=== PATIENT | female | born 1940 | race Caucasian/White ===

== ENCOUNTER 2020-02-06 06:33 | Day surgery (SDC) | payer MEDICARE, MEDICAID, SELFPAY ==
[2020-02-05 09:18] VITALS: BMI 27.8
[2020-02-06 07:00] VITALS: BP 145/69; PULSE 82; RESP 18; TEMP 36.5; O2SAT 97
[2020-02-06] MEDS: sodium chloride 0.9% 1,000 ML 30 ML (07:05)
--- NOTE | 2020-02-06 07:46 | ANES.PREANE2 ---
Pre-Anesthetic Assessment Pre-Anesthetic Assessment: Height/Weight: Height 1.6 m Weight 71.214 kg Temp Pulse Resp BP Pulse Ox 97.7 F 82 18 145/69 97 02/06/20 07:00 02/06/20 07:00 02/06/20 07:00 02/06/20 07:00 02/06/20 07:00 Preop Diagnosis: 1 Proposed Procedure: Operation Date: 02/06/20 09:00 Proposed Procedures p Colonoscopy 05214 K92.1(Not Applicable) - River Lara MD Familial anesthetic complications: denies Was Beta Mary taken within 24 hours: N/A Last intake: Intake Last Liquid Date 02/12/20 Last Liquid Time 19:00 Last Solid Date 02/04/20 Last Solid Time 20:00 Last Intake: 00:00 Social: Social History: No alcohol and No tobacco Exam: Pre-Anes Outpt Exam: alert, oriented x 3 and clear to auscultation bilaterally Airway: Submandibular: WNL Cervical ROM: WNL MP: 1 Dentition: Full (dentures out ) Pulmonary: Pulmonary: Sleep apnea (suppose to wear CPAP) CV/HEM: CV/HEM: HTN : : None reported Hepatic: Hepatic: None reported GI: GI: GERD (controlled with diet) and Hiatus hernia (surgical repair 2007) Metabolic: Metabolic: None reported Musc/skel: Musc/skel: OA/DJD Neuropsych: Neuropsych: None reported Anesthetic Plan: ASA status: 2 Anesthesia: Anesthesia Evaluation and MAC PFSH Anesthesia PFSH: Social History (Updated 01/21/20 @ 13:31 by BREONNA Diallo) Smoking and tobacco status: never smoked Alcohol intake: never History of recent travel: No Current gender identity: Female Data Anesthesia Cardiac Studies: No Data to Display
--- NOTE | 2020-02-06 08:55 | W.PM.OPSUD ---
Surgery/Procedure H&P Update DATE OF PROCEDURE: February 06, 2020 DATE H&P PERFORMED: 01/21/20 PREOP DIAGNOSIS: 1 PLANNED PROCEDURE: Operation Date: 02/06/20 09:00 Proposed Procedures p Colonoscopy 91728 K92.1(Not Applicable) - River Lara MD
[2020-02-06 09:56] VITALS: BP 140/67; PULSE 76; RESP 16; TEMP 36.4; O2SAT 95
[2020-02-06 10:04] VITALS: BP 143/76; PULSE 73; RESP 16; O2SAT 99
--- NOTE | 2020-02-06 10:26 | CT_ITS ---
WS: [id number] CT ABDOMEN PELVIS TECHNIQUE: Contrast-enhanced CT of the abdomen and pelvis with coronal and sagittal reformatted image s. CLINICAL INFORMATION: COLON MASS AT 25 CM COMPARISON: None. DLP: [id number] scans at [facility] use at least one of these dose optimization techniques: automat ed exposure control; mA and/or kV adjustment per patient size (includes targeted exams where dose is matched to clinical indication); or iterative reconstruction. FINDINGS: Liver is normal. Normal portal vein and splenic vein. Normal spleen. Normal pancreas. Normal visualiz ed portal vein and splenic vein. Adrenal glands are normal. No hydronephrosis. Small esophageal hiata l hernia. Lung bases are well aerated. Normal caliber abdominal aorta. Aortic calcification. No periaortic lymphadenopathy. No pelvic lymphadenopathy. Small seroma along th e right inguinal canal measuring 3.0 CM. No inguinal lymphadenopathy. Sigmoid diverticulosis. No evidence of acute diverticulitis. Recently biopsied mass in the sigmoid co vanessa not definitely visualized. Normal ileocecal valve. Mild wall thickening involving the right colon may be due to recent colonoscopy or incomplete distention. CT/CT abdomen pelvis w con* [id number] IMPRESSION: 1. No evidence of metastatic disease in the abdomen or pelvis. 2. Normal liver and spleen. 3. No abdominal lymphadenopathy. 4. Sigmoid diverticulosis. No evidence of acute diverticulitis. Trace free flu id in the pelvis. 5. Recently biopsied sigmoid Lesion not definitely visualized. 6. Mild wall thickening involving the right colon may be due to recent colono scopy or incomplete distention. 7. Fluid attenuation collection along the right inguinal canal likely seroma. 8. Prior hysterectomy and cholecystectomy.
[2020-02-06] MEDS: iohexol 300 mg/mL 50 mL Btl IV (10:43)
[2020-02-06 10:46] LABS: Basophils # 0.1 10^3/uL (0.0-0.1); Basophils % 0.8 %; Eosinophils # 0.1 10^3/uL (0.0-0.8); Eosinophils % 0.6 %; Hematocrit 40.3 % (37.0-47.0); Hemoglobin 12.8 g/dL (11.5-15.3); Lymphocytes # 1.5 10^3/uL (0.8-4.8); Lymphocytes % 19.7 %; Mean Corpuscular HGB Conc 31.8 g/dL (30.0-36.0); Mean Corpuscular Hemoglobin 31.3 pg (28.0-34.0); Mean Corpuscular Volume 98.5 fL (81-99); Mean Platelet Volume 9.6 fL (7.4-10.4); Monocytes # 0.6 10^3/uL (0.2-0.9); Monocytes % 7.1 %; Neutrophils # 5.5 10^3/uL (1.8-7.7); Neutrophils % 71.5 %; Nucleated Red Blood Cells % 0 %; Platelet Count 286 10^3/cmm (130-400); Red Blood Count 4.09 10^6/uL (4.1-5.3); Red Cell Distribution Width 12.4 % (12.1-15.1); White Blood Count 7.7 10^3/uL (4.0-10.0)
[2020-02-06 10:59] LABS: Anion Gap 14.9 (5-19); Blood Urea Nitrogen 15 mg/dL (8-23); Carbon Dioxide 22 mmol/L (22-29); Chloride 106 mmol/L (98-107); Glucose 97 mg/dL (65-115); Osmolality Calculated 284 mOsm/kg (285-295); Potassium 3.9 mmol/L (3.5-5.1); Sodium 139 mmol/L (136-145)
[2020-02-06 11:09] LABS: Carcinoembryonic Antigen 6.6 ng/mL (0.0-4.7)
--- NOTE | 2020-02-06 11:20 | ANE.PACU2 ---
 Inpatient post-anesthesia follow up: Airway intact: Yes Vital signs: Temperature 97.5 F Pulse Rate 73 Respiratory Rate 16 Blood Pressure 143/76 Pulse Oximetry 99 Oxygen Delivery Me thod Room Air Oxygen Flow Rate 2 Fraction of Inspir ed Oxygen Hydration adequate: Yes Nausea and vomiting: No Pain level: 1 Mental status: Baseline
[2020-02-06] MEDS: iohexol 300 mg/mL 100 mL Btl IV (12:22)
[2020-03-03 11:35] LABS: Miscellaneous Test See Scanned Lab Rpt
== END 2020-02-06 11:00 | disposition home or self-care (01) ==
PROVIDERS: Family Provider Nurse Practitioner Family; PCP Nurse Practitioner Family; Visit Provider Internal Medicine
PROC: 0DJD8ZZ Inspection of Lower Intestinal Tract, Via Natural or Artificial Opening Endoscopic (ICD-10-PCS; CPT 45378; principal; 2020-02-06 09:00)
DX: C18.9 Malignant neoplasm of colon, unspecified (principal); K92.1 Melena; Z82.49 Family history of ischemic heart disease and other diseases of the circulatory system; K57.30 Diverticulosis of large intestine without perforation or abscess without bleeding; I10 Essential (primary) hypertension; K21.9 Gastro-esophageal reflux disease without esophagitis; M19.90 Unspecified osteoarthritis, unspecified site
CPT/HCPCS: 12345; 45380; 74177; 80048; 82378; 85025; 88305; 88341; 88342; J2001; J2704; J7030

== ENCOUNTER 2020-02-06 11:20 | Outpatient (CLI) | payer MEDICARE, MEDICAID, SELFPAY | END 2020-02-06 11:21 | disposition home or self-care (01) | PROVIDERS: Family Provider Nurse Practitioner Family; PCP Nurse Practitioner Family; Visit Provider Internal Medicine | DX: Z01.89 Encounter for other specified special examinations (principal) ==

== ENCOUNTER 2020-02-18 06:30 | Inpatient (IN) | payer MEDICARE, MEDICAID, SELFPAY ==
[2020-02-18] VITALS (18 sets, daily range): BP systolic 137–174; BP diastolic 55–92; PULSE 73–103; RESP 15–20; TEMP 36.2–37.4; O2SAT 90–99; BMI 28.0
--- NOTE | 2020-02-18 07:01 | W.PM.OPSUD ---
Surgery/Procedure H&P Update DATE OF PROCEDURE: February 18, 2020 DATE H&P PERFORMED: 02/13/20 H&P UPDATE INFORMATION: I have reviewed H&P completed within last 30 days, I have examined patient prior to procedure and No changes to prior documentation PREOP DIAGNOSIS: Sigmoid colon cancer PLANNED PROCEDURE: Operation Date: 02/18/20 08:00 Proposed Procedures p Laparoscopic poss open Sigmoidectomy 84777 C18.7(Not Applicable) - Goyo Stewart MD
[2020-02-18] MEDS: sodium chloride 0.9% 1,000 ML 30 ML IV (07:30)
--- NOTE | 2020-02-18 07:34 | ANES.PREANE2 ---
Pre-Anesthetic Assessment Pre-Anesthetic Assessment: Height/Weight: Height 1.6 m Weight 71.668 kg Preop Diagnosis: Sigmoid colon cancer Proposed Procedure: Operation Date: 02/18/20 08:00 Proposed Procedures p Laparoscopic poss open Sigmoidectomy 06914 C18.7(Not Applicable) - Goyo Stewart MD Last intake: Intake Last Liquid Date 02/17/20 Last Liquid Time 19:00 Last Solid Date 02/17/20 Last Solid Time 06:45 Exam: Pre-Anes Outpt Exam: alert, oriented x 3, clear to auscultation bilaterally and regular rate & rhythm Airway: Submandibular: WNL Cervical ROM: WNL MP: 1 Dentition: False CV/HEM: CV/HEM: HTN Comments: rx'd 10y 2 blocks/2FOS without angina/MELENDEZ : : UTI Comments: last 3y ago GI: GI: Hiatus hernia Comments: sigmoid CA hiatal hernia repair 12y with good result Musc/skel: Musc/skel: Lower Back Pain Comments: left radiculopathy Anesthetic Plan: ASA status: 3 Anesthesia: General and MAC Meds/Allergies Current Medications: Current Medications Generic Name Dose Route Start Last Admin Trade Name Freq PRN Reason Stop Dose Admin Sodium Chloride 1,000 mls @ 30 ml s/hr 02/18/20 07:30 02/18/20 07:30 Sodium Chloride 0.9% IV 02/19/20 07:29 30 mls/hr .Q24H JEMMA Administration PFSH Anesthesia PFSH: Medical History (Updated 02/13/20 @ 16:47 by Goyo Stewart MD) Adenocarcinoma of sigmoid colon Essential (primary) hypertension Osteoarthritis (~01/2020) Primary insomnia Surgical History (Updated 02/13/20 @ 11:05 by Goyo Stewart MD) History of cholecystectomy History of colonoscopy with polypectomy History of hysterectomy History of repair of hiatal hernia Social History Smoking and tobacco status: never smoked Alcohol intake: never History of recent travel: No Current gender identity: Female Female Reproductive History: Date of last menstrual period: 02/12/01 Data Anesthesia Cardiac Studies: No Data to Display
[2020-02-18] MEDS: metroNIDAZOLE IV 500 MG/100 ML PREMIX 100 MG IV ×3 (08:03→22:13)
--- NOTE | 2020-02-18 11:48 | PM.OP ---
Operative Report Date of procedure: February 18, 2020 Pre-op Diagnosis: Sigmoid colon cancer Post-op Diagnosis: No evidence of peritoneal carcinomatosis Sigmoid colon cancer Procedure Done: Laparoscopic sigmoid colectomy with 28 mm EEA anastomosis Flexible sigmoidoscopy Surgeon: Goyo Stewart Director Of Intercollegiate Athletics: Dwight Rankin Anesthesia: General Estimated blood loss (mL): 25 IV fluids (mL): 1,300 Urine output (mL): 125 Condition: stable Disposition: floor Procedure: The patient was taken to the operating room, intubated under general anesthesia after IV antibiotic had been administered. The patient was placed in modified lithotomy position with shoulder support and the Stokes catheter was placed. The rectum was irrigated with diluted Betadine using red rubber catheter. The abdomen and the perineum was prepped and draped in a sterile manner. Using a 15 blade, a midline infraumbilical incision was made and using open Colon technique the peritoneal cavity was entered, 12 mm port was placed and 15 mm of pneumoperitoneum was created. A 10 mm 30? scope was then introduced. 5 mm ports were placed in the left lower quadrant and in the right upper quadrant under direct visualization in the midclavicular line and and a 12 mm port was placed in the right lower quadrant. Examination of the colon revealed a a mass within the sigmoid colon which had been previously inked, no signs of liver lesions or peritoneal carcinomatosis. The patient was placed in steep Trendelenburg position and rotated to the right in order to place a small bowel loops in the right upper quadrant. The transverse colon was retracted superiorly. The inferior mesenteric artery was identified near its takeoff, the peritoneum opened and dissection was carried posterior to the artery until the ureter was identified. A medial to lateral dissection of the sigmoid mesocolon was performed down to the rectosigmoid junction. There were adhesions of the sigmoid colon to the abdominal wall which were taken down. The line of Toldt was opened along the descending colon up to the splenic flexure and the avascular plane was entered to mobilize the descending colon medially. The sigmoid mesocolon was divided using Turton 45 mm MC at the proximal rectum to ensure there was at least 5 cm distal margin. 2 loads of 45 mm blue load Endo MC stapler was introduced through the right lower quadrant port to divide the rectum distally. At this point it appeared that the descending colon reached up to the rectum and the midline umbilical incision was extended up the pneumoperitoneum was released and a wound protector was placed and the divided sigmoid colon was exteriorized. A noncrushing bowel clamps were placed in the descending colon and an Autosuture pursestring was placed and the colon was divided and the specimen removed from the operating field. Serial anal dilators were used and it was decided to proceed with the 28 mm EEA stapler. The anvil of the EEA stapler was introduced into the descending colon and tied down. The colon was introduced into the peritoneal cavity and the pneumoperitoneum was recreated. At this point joined me to help with the case. The anus was digitally dilated and the EEA stapler was introduced through the anal canal and the trocar passed anterior to the previously created staple line and attached to the anvil after ensuring that there was no twisting of the mesentery. The EEA stapler was fired to create the stapled 28 mm end-to-end anastomosis and 2 intact doughnuts were retrieved which were sent as proximal margin and distal margin. A colonoscope was introduced and passed beyond the anastomosis after submerging the anastomosis under saline in the pelvis. The air leak test was negative. There was no significant bleeding noted from the staple line. 20 cc of saline mixed with 20 0.5% Marcaine mixed with 20 cc of Exparel was injected in the midclavicular line bilaterally for TAP block. The colonoscope was withdrawn. All 4 ports were removed under direct visualization and the fascia the midline was closed using #1 loop PDS. The fascia of the right lower quadrant port was closed using [id number] 0 Vicryl suture. The subcutaneous tissue was approximated using 3-0 Vicryl suture and skin was closed using running subcuticular 4-0 Monocryl suture and Dermabond. The patient was subsequently extubated and transferred to recovery room with a Stokes catheter in place.
[2020-02-18] MEDS: fentaNYL 50 mcg/mL INJ 2mL IVP ×2 (12:04→12:09)
--- NOTE | 2020-02-18 12:44 | PC.NURSE ---
3 incisions noted to abdomen. covered with dermabond and no drainage noted.
[2020-02-18] MEDS: famotidine 20 mg/2 mL INJ IVP (13:16)
[2020-02-18] MEDS: D5-NS 0.45% + KCL 20 mEq 20 MEQ/1,000 ML BAG 100 MEQ IV (13:19)
[2020-02-18] MEDS: docusate sodium 100 mg Capsule PO (17:18)
[2020-02-18] MEDS: HYDROcodone-acetaminophen 5-325 mg Tablet 1 TAB PO (21:31)
[2020-02-19] VITALS (8 sets, daily range): BP systolic 102–157; BP diastolic 53–76; PULSE 73–79; RESP 16–20; TEMP 36.6–37.2; O2SAT 90–93
[2020-02-19] MEDS: D5-NS 0.45% + KCL 20 mEq 20 MEQ/1,000 ML BAG 100 MEQ IV ×2 (01:33→13:00)
[2020-02-19] MEDS: famotidine 20 mg/2 mL INJ IVP ×3 (01:34→23:34)
[2020-02-19 05:26] LABS: Basophils % 0.1 %; Hematocrit 36.3 % (37.0-47.0); Hemoglobin 11.3 g/dL (11.5-15.3); Lymphocytes # 1.2 10^3/uL (0.8-4.8); Lymphocytes % 11.6 %; Mean Corpuscular HGB Conc 31.1 g/dL (30.0-36.0); Mean Corpuscular Hemoglobin 30.8 pg (28.0-34.0); Mean Corpuscular Volume 98.9 fL (81-99); Mean Platelet Volume 9.9 fL (7.4-10.4); Monocytes # 1.3 10^3/uL (0.2-0.9); Monocytes % 12.5 %; Neutrophils # 7.9 10^3/uL (1.8-7.7); Neutrophils % 75.3 %; Nucleated Red Blood Cells % 0 %; Platelet Count 277 10^3/cmm (130-400); Red Blood Count 3.67 10^6/uL (4.1-5.3); Red Cell Distribution Width 12.5 % (12.1-15.1); White Blood Count 10.5 10^3/uL (4.0-10.0)
[2020-02-19] MEDS: enoxaparin 40 mg/0.4 mL Syringe SUBCUT (05:36)
[2020-02-19 05:46] LABS: Anion Gap 15.4 (5-19); Blood Urea Nitrogen 10 mg/dL (8-23); Calcium 8.3 mg/dL (8.5-10.5); Carbon Dioxide 20 mmol/L (22-29); Chloride 108 mmol/L (98-107); Creatinine Clr Calc Pharmacy 55.8809; Glucose 140 mg/dL (65-115); Osmolality Calculated 286 mOsm/kg (285-295); Potassium 4.4 mmol/L (3.5-5.1); Sodium 139 mmol/L (136-145)
[2020-02-19] MEDS: cetirizine 10 mg Tablet PO (09:48)
[2020-02-19] MEDS: docusate sodium 100 mg Capsule PO ×2 (09:48→17:10)
[2020-02-19] MEDS: amlodipine 10 mg Tablet PO (09:48)
[2020-02-19] MEDS: gabapentin 300 mg Capsule PO ×3 (09:49→20:59)
[2020-02-19] MEDS: HYDROcodone-acetaminophen 5-325 mg Tablet 1 TAB PO (10:44)
--- NOTE | 2020-02-19 10:51 | PC.NURSE ---
bar removed bar. pt tolerated it well. 9ml ns removed from balloon.
--- NOTE | 2020-02-19 11:12 | PC.CHAP ---
Pastoral Care Encounter/Spiritual Assessment Type of Contact [] Declined clean up supervisor visit [] Patient/Family/Request visit [] Outpatient visit [] Follow-up visit [] Physician referral [] Code/Alert [x] Routine visit [] Staff referral [] Actively dying [] Patient sleeping [] Family support [] [] Out of room [] Palliative care [] [] Receiving care in room [] Pre-surgical visit [] Trauma [] Long length of stay [] ICU visit [] Other: Relational/Emotional Strength [x] Patient feels connected with others/family/visitors/staff [] Distress [] Loneliness/isolation [] Abandonment Spirituality of Patient [x] Person of Pretty [x] Attends Orthodoxy of their Pretty [x] Believes in Prayer [x] Reads Bible or Temple materials [] There are Spiritual issues to be addressed Felt Tipping Machine Tender Interventions [x] Prayer [xx] Active listening [x] Non-anxious presence [x] Spiritual/emotional support [] Crisis/trauma care [x] Spiritual counseling [] Bereavement support [] Provided bereavement packet [] Provided Bible/devotional materials [] Provided toy/stuffed animal, coloring book to patient or family member [] Provided Communion [] Anointing/[place] [] Salvation [] Completed spiritual assessment [] Other: Impact on Illness or Injury [] Angry [] Fearful [] Anxious [] Often cries [] Exhaustion [] Unable to work [] Unable to attend baptism [] Unable to walk/stand [] Unable to read [] Unable to drive [] Unable to eat/drink [] Unable to sleep [] Unable to be with family [] Patient intubated [x] Other: n/a Summary Patient is strong in pretty, proclaimed that her son is a ground host/hostess in [place]. Time spent with patient 10 minutes
--- NOTE | 2020-02-19 13:22 | PC.NURSE ---
amb Pt walked three times around north/south and two times this morning. Still no bm or gas.
--- NOTE | 2020-02-19 13:44 | P.PN_ITS ---
Subjective Subjective: Interval history: patient doing well, no nausea, vomiting, flatus or BM Vitals/I&O/Wt Last Vital Signs Temp 97.9 F 02/19/20 11:51 Pulse 75 02/19/20 11:51 Resp 20 H 02/19/20 11:51 BP 125/65 02/19/20 11:51 Pulse Ox 92 02/19/20 11:51 02/18/20 02/19/20 02/19/20 22:59 06:59 14:59 Intake Total 915 / 1690 225 / 1690 1720 / 1720 Output Total 500 / 1925 1150 / 1925 1150 / 1150 Balance 415 / -235 -925 / -235 570 / 570 Weight last 48 hrs Weight 158 lb Physical Exam Narrative: EXAM NARRATIVE: Abdomen: soft slighty distended and tender, incision clean dry and intact Urinary Catheter Management^: F: Cath Placed During This Visit: yes Reason for Continuing Indwelling Catheter: Required Immobilization for Trauma or Surgery or Anesthesia Urinary Catheter Date of Insertion: 02/18/20 Urinary Catheter Time of Insertion: 08:30 Data : 02/20/20 05:23 02/20/20 05:23 A&P Assessment and plan (1) S/P partial colectomy: Status post laparoscopic sigmoid colectomy doing well IV fluids at 30 cc/h Ambulate ad gregory. DC Stokes catheter Pepcid for GI prophylaxis Lovenox for DVT prophylaxis Colace for bowel regimen Resume all home medications Status: Acute Code(s): Z90.49 - Acquired absence of other specified parts of digestive tract Attestations Medical Necessity Statement*: Status post sigmoid colectomy with postop ileus requiring continued inpatient stay Coding Level of Care Code Acute [place] Program Coordinator for Chg Fwd Diagnoses S/P partial colectomy Z90.49
--- NOTE | 2020-02-19 15:00 | PC.NURSE ---
amb pt ambuated 4 times around north/south
--- NOTE | 2020-02-19 21:04 | PC.NURSE ---
flatus pt was able to pass gas while nurse was in room administering medications.
[2020-02-20] VITALS: BP 122/70; PULSE 69; RESP 17; TEMP 37.1; O2SAT 90
[2020-02-20 04:00] VITALS: BP 114/69; PULSE 66; RESP 17; TEMP 36.7; O2SAT 90
[2020-02-20] MEDS: enoxaparin 40 mg/0.4 mL Syringe SUBCUT (05:19)
[2020-02-20 06:21] LABS: Basophils # 0.1 10^3/uL (0.0-0.1); Basophils % 0.7 %; Eosinophils # 0.1 10^3/uL (0.0-0.8); Hematocrit 34.2 % (37.0-47.0); Hemoglobin 10.7 g/dL (11.5-15.3); Lymphocytes # 2.1 10^3/uL (0.8-4.8); Lymphocytes % 29.1 %; Mean Corpuscular HGB Conc 31.3 g/dL (30.0-36.0); Mean Corpuscular Hemoglobin 31.1 pg (28.0-34.0); Mean Corpuscular Volume 99.4 fL (81-99); Mean Platelet Volume 9.8 fL (7.4-10.4); Monocytes # 0.7 10^3/uL (0.2-0.9); Monocytes % 10.3 %; Neutrophils # 4.2 10^3/uL (1.8-7.7); Neutrophils % 58.6 %; Nucleated Red Blood Cells % 0 %; Platelet Count 272 10^3/cmm (130-400); Red Blood Count 3.44 10^6/uL (4.1-5.3); Red Cell Distribution Width 12.8 % (12.1-15.1); White Blood Count 7.2 10^3/uL (4.0-10.0)
[2020-02-20 06:32] LABS: Anion Gap 11.2 (5-19); Blood Urea Nitrogen 9 mg/dL (8-23); Calcium 8.9 mg/dL (8.5-10.5); Carbon Dioxide 25 mmol/L (22-29); Chloride 109 mmol/L (98-107); Creatinine Clr Calc Pharmacy 55.8809; Glucose 94 mg/dL (65-115); Osmolality Calculated 288 mOsm/kg (285-295); Potassium 4.2 mmol/L (3.5-5.1); Sodium 141 mmol/L (136-145)
[2020-02-20 08:00] VITALS: BP 145/74; PULSE 75; RESP 16; TEMP 36.8; O2SAT 95
[2020-02-20] MEDS: gabapentin 300 mg Capsule PO ×3 (08:47→20:36)
[2020-02-20] MEDS: amlodipine 10 mg Tablet PO (08:47)
[2020-02-20] MEDS: cetirizine 10 mg Tablet PO (08:47)
[2020-02-20] MEDS: docusate sodium 100 mg Capsule PO ×2 (08:47→17:44)
--- NOTE | 2020-02-20 09:44 | PC.CHAP ---
Pastoral Care Encounter/Spiritual Assessment Type of Contact [] Declined business development manager visit [] Patient/Family/Request visit [] Outpatient visit [] Follow-up visit [] Physician referral [] Code/Alert [xx] Routine visit [] Staff referral [] Actively dying [] Patient sleeping [] Family support [] [] Out of room [] Palliative care [] [] Receiving care in room [] Pre-surgical visit [] Trauma [] Long length of stay [] ICU visit [] Other: Relational/Emotional Strength [x] Patient feels connected with others/family/visitors/staff [] Distress [] Loneliness/isolation [] Abandonment Spirituality of Patient [x] Person of Pretty [x] Attends Yarsanism of their Pretty [] Believes in Prayer [] Reads Bible or Zoroastrian materials [] There are Spiritual issues to be addressed Entry Level Accountant Interventions [x] Prayer [] Active listening [] Non-anxious presence [] Spiritual/emotional support [] Crisis/trauma care [] Spiritual counseling [] Bereavement support [] Provided bereavement packet [] Provided Bible/devotional materials [] Provided toy/stuffed animal, coloring book to patient or family member [] Provided Communion [] Anointing/[place] [] Salvation [x Completed spiritual assessment [] Other: Impact on Illness or Injury [] Angry [] Fearful [] Anxious [] Often cries [] Exhaustion [] Unable to work [] Unable to attend latter-day [] Unable to walk/stand [] Unable to read [] Unable to drive [] Unable to eat/drink [] Unable to sleep [] Unable to be with family [] Patient intubated [] Other: Summary patient feeling much better Time spent with patient 10 min
[2020-02-20 11:30] VITALS: BP 106/65; PULSE 73; RESP 16; TEMP 36.7; O2SAT 96
[2020-02-20] MEDS: famotidine 20 mg/2 mL INJ IVP (12:11)
[2020-02-20] MEDS: acetaminophen 325 mg Tablet 650 MG PO (12:23)
[2020-02-20 15:55] VITALS: BP 121/68; PULSE 68; RESP 16; TEMP 37; O2SAT 94
--- NOTE | 2020-02-20 17:55 | P.PN_ITS ---
Subjective Subjective: Interval history: Patient is passing flatus, no nausea or vomiting, no BM yet Vitals/I&O/Wt Last Vital Signs Temp 98.6 F 02/20/20 15:55 Pulse 68 02/20/20 15:55 Resp 16 02/20/20 15:55 BP 121/68 02/20/20 15:55 Pulse Ox 94 02/20/20 15:55 02/20/20 02/20/20 02/20/20 06:59 14:59 22:59 Intake Total 360 / 360 Output Total 1000 / 3810 1400 / 2400 1000 / 2400 Balance -1000 / -1850 -1040 / -2040 -1000 / -2040 Physical Exam Narrative: EXAM NARRATIVE: Abdomen: Soft, nontender, nondistended incisions healing well Urinary Catheter Management^: F: Cath Placed During This Visit: yes Reason for Continuing Indwelling Catheter: Required Immobilization for Trauma or Surgery or Anesthesia Urinary Catheter Date of Insertion: 02/18/20 Urinary Catheter Time of Insertion: 08:30 Data : 02/20/20 05:23 02/20/20 05:23 A&P Assessment and plan (1) S/P partial colectomy: Status post laparoscopic sigmoid colectomy doing well DC IV fluids Ambulate ad gregory. Advance to full liquid diet DC Stokes catheter Pepcid for GI prophylaxis Lovenox for DVT prophylaxis Colace for bowel regimen Continue all home medications Status: Acute Code(s): Z90.49 - Acquired absence of other specified parts of digestive tract Attestations Medical Necessity Statement*: Patient will need continued inpatient stay to ensure resolution of ileus Coding Level of Care Code Acute Medical Staff Coordinator for Chg Fwd Diagnoses S/P partial colectomy Z90.49
[2020-02-20 20:00] VITALS: BP 146/82; PULSE 76; RESP 18; TEMP 36.6; O2SAT 95
[2020-02-21] VITALS: BP 124/50; PULSE 66; RESP 17; TEMP 36.7; O2SAT 93
[2020-02-21] MEDS: acetaminophen 325 mg Tablet 650 MG PO (03:43)
[2020-02-21 03:58] VITALS: BP 122/56; PULSE 64; RESP 17; TEMP 36.8; O2SAT 92
[2020-02-21] MEDS: famotidine 20 mg/2 mL INJ IVP (05:08)
[2020-02-21] MEDS: enoxaparin 40 mg/0.4 mL Syringe SUBCUT (05:08)
[2020-02-21 07:43] VITALS: BP 124/75; PULSE 69; RESP 16; TEMP 36.9; O2SAT 95
[2020-02-21] MEDS: gabapentin 300 mg Capsule PO (08:19)
[2020-02-21] MEDS: docusate sodium 100 mg Capsule PO (08:19)
[2020-02-21] MEDS: cetirizine 10 mg Tablet PO (08:20)
[2020-02-21] MEDS: amlodipine 10 mg Tablet PO (08:20)
--- NOTE | 2020-02-21 10:13 | PM.PN ---
Subjective Subjective: Interval history: Patient had multiple bowel movements, no nausea or vomiting, tolerating diet Medications: Reviewed: Yes Vitals/I&O/Wt Last Vital Signs Temp 98.5 F 02/21/20 07:43 Pulse 69 02/21/20 07:43 Resp 16 02/21/20 07:43 BP 124/75 02/21/20 07:43 Pulse Ox 95 02/21/20 07:43 02/20/20 02/21/20 02/21/20 22:59 06:59 14:59 Intake Total 240 / 600 240 / 240 Output Total 1000 / 2900 500 / 2900 450 / 450 Balance -760 / -2300 -500 / -2300 -210 / -210 Physical Exam Narrative: EXAM NARRATIVE: Abdomen: Soft, nontender, nondistended incisions healing well Urinary Catheter Management^: F: Cath Placed During This Visit: yes Reason for Continuing Indwelling Catheter: Required Immobilization for Trauma or Surgery or Anesthesia Urinary Catheter Date of Insertion: 02/18/20 Urinary Catheter Time of Insertion: 08:30 Data : 02/20/20 05:23 02/20/20 05:23 A&P Assessment and plan (1) S/P partial colectomy: Doing well DC home today Status: Acute Code(s): Z90.49 - Acquired absence of other specified parts of digestive tract Attestations Medical Necessity Statement*: DC home today Coding Level of Care Code Acute Patient Registration Clerk for Chg Fwd Diagnoses S/P partial colectomy Z90.49
--- NOTE | 2020-02-21 10:17 | PM.DCS ---
Discharge Providers Date of Admission: 02/18/20 06:30 Date of Discharge: February 21, 2020 Attending Provider at Admission: Goyo Stewart MD Attending Provider at Discharge: Goyo Stewart MD Primary Care Provider: Buffy Womack Diagnoses at Discharge Discharge Diagnosis (1) S/P partial colectomy: Status: Acute Problem details: Laparoscopic sigmoid colectomy Reason for Visit Reason for Visit: Reason For Visit: lap poss open sigmoid colectomy Hospital Course Hospital Course: This is a 79-year-old female who was diagnosed with sigmoid colon cancer on colonoscopy performed for a 3-month history of hematochezia. Patient underwent laparoscopic sigmoid colectomy and by day 2 she had return of bowel function. At time of discharge she was tolerating a regular diet ambulating and her pain was controlled with Tylenol. Her vital signs are stable Physical Exam Narrative: EXAM NARRATIVE: Abdomen: Soft, nontender, nondistended incisions healing well Urinary Catheter Management^: F: Cath Placed During This Visit: yes Reason for Continuing Indwelling Catheter: Required Immobilization for Trauma or Surgery or Anesthesia Urinary Catheter Date of Insertion: 02/18/20 Urinary Catheter Time of Insertion: 08:30 Discharge Data Data Completed and Pending: Completed Studies During Hospitalization Category Date Time Status Pathology: Surgic al [PTH] Routine Pth 02/18/20 11:23 Completed Pending at discharge Category Date Time Status ES surgery / GI i mages Routine Exams 02/18/20 07:03 Ordered Vitals: Last Vital Signs Temp 98.5 F 02/21/20 07:43 Pulse 69 02/21/20 07:43 Resp 16 02/21/20 07:43 BP 124/75 02/21/20 07:43 Pulse Ox 95 02/21/20 07:43 Discharge Plan Discharge Patient Disposition: Home, Self-Care Condition: Stable Prescriptions: [place] 5-325 mg tablet 1 tab PO Q6H 7 Days Qty: 20 RF: 0 docusate sodium [Colace] 100 mg capsule 100 mg PO BID Qty: 30 RF: 0 Continued All Day Allergy (cetirizine) 10 mg capsule 10 mg PO DAILY RF: 0 irbesartan-hydrochlorothiazide 150-12.5 mg tablet 1 tab PO DAILY RF: 0 amlodipine 10 mg tablet 10 mg PO DAILY RF: 0 montelukast [Singulair] 10 mg tablet 10 mg PO DAILY RF: 0 zolpidem [Ambien] 10 mg tablet 5 mg PO DAILY RF: 0 gabapentin 300 mg Capsule 300 mg PO TID RF: 0 Discharge Orders: Discharge Order (Routine); Ordered 02/21/20 Ordered By: Goyo Stewart Referrals: Goyo Stewart MD [Physician] - 2 weeks (patient has smart phone, try telehealth) Discharge Diet: GI Soft Activity Restrictions/Additional Instructions: 1. Up and walking as tolerated. 2. Ok to shower 3. Remove Dermabond dressing in 7-10 days. 4. Do not lift more than 10 pounds. 5. Do not operate heavy machinery or drive while using pain medications. 6. Advised to return to ER or contact my office if there are any signs of infection like, increasing pain, fevers, chills, redness or drainage of pus. 7. avoid high residue foods like salads, have 5 small meals instead of 3 regular meals as bowel function returns to normal. Discharge Attestations Time Spent in Discharge Care*: less than 30 min Quality Metrics Clinical Quality Measures During this hospital stay, did patient experience: None Coding Level of Care Code Acute Laboratory Equipment Cleaner for Chg Fwd Diagnoses S/P partial colectomy Z90.49
--- NOTE | 2020-02-21 10:50 | PC.SOCIAL ---
IMM Page 2 of IMM given to patient with [facility] number provided. Initialed, dated, and timed and placed in chart.
[2020-02-21 11:47] VITALS: BP 120/72; PULSE 71; RESP 16; TEMP 36.9; O2SAT 94
[2020-02-21 13:09] VITALS: BP 120/72; PULSE 71; RESP 16; TEMP 36.9; O2SAT 94
== END 2020-02-21 12:00 | disposition home or self-care (01) | DRG 331 ==
LOC: OR 06:31 → MEDSURG 07:07
PROVIDERS: Admitting Provider Surgery; Family Provider Nurse Practitioner Family; PCP Nurse Practitioner Family; Visit Provider Surgery
PROC: 0DTN4ZZ Resection of Sigmoid Colon, Percutaneous Endoscopic Approach (ICD-10-PCS; CPT 44204; principal; 2020-02-18 08:00)
PROC: 0DJD8ZZ Inspection of Lower Intestinal Tract, Via Natural or Artificial Opening Endoscopic (ICD-10-PCS; CPT 45378; 2020-02-18 08:00)
DX: C18.7 Malignant neoplasm of sigmoid colon (principal); Z90.49 Acquired absence of other specified parts of digestive tract; Z79.82 Long term (current) use of aspirin; Z79.83 Long term (current) use of bisphosphonates; Z79.899 Other long term (current) drug therapy
CPT/HCPCS: 12345; 36415; 51702; 80048; 85025; 86850; 86900; 88309; 96372; 96375; 97116; 97161; 97530; C9290; J0690; J1100; J1650; J2001; J2405; J2704; J2710; J2765; J3010; J3490; J7030; S0030

== ENCOUNTER 2020-03-26 12:18 | Outpatient (CLI) | payer MEDICARE, MEDICAID, SELFPAY ==
--- NOTE | 2020-03-26 15:32 | ONC CON_ITS ---
Dr. Wallace New Patient Note Patient: Rose Javier Unit #: [id number]: [id number] Dicatated By: Petros Wallace M.D.Date of Visit: March 26, 2020 Onc MED New Patient/Consult Referring Physician: No 'Referrals from' exist for this patient. History of Present Illness: Mrs. Rose Javier, is a 79-year-old female, as per patient in December 2019, she noticed blood in her stool and on 02/06/2020 she underwent colonoscopy evaluation which showed at 25 cm from anal verge, there is a nonobstructing, medium-size, fungating, friable, infiltrating, malignant appearing ulcerated mass seen biopsy was taken which confirmed adenocarcinoma . CT scan of abdomen pelvis done on 02/13/2020, showed no evidence of metastatic disease in abdomen or pelvis. subsequently on 02/18/2020, she underwent laparoscopic sigmoid colon resection and final pathology report showed moderately differentiated invasive adenocarcinoma tumor site 3.1 cm, tumor invades through muscularis propria into pericolic colorectal tissue, no lymphovascular invasion seen no perineural invasion seen surgical margins clear, pT3, 0/ 11 lymph nodes examined showed metastatic disease pN0 , intact MMR/MSI , stage II Patient tolerated procedure well now healing well. Patient denies any history of jaundice, denies any history of weight loss. Denies any history of poor appetite. Denies any history of nausea vomiting diarrhea but occasional constipation.Patient denies any history of anemia or dyspnea on exertion or shortness of breath or palpitation. Past Medical History: Ms. Javier's medical history consists of hypertension, insomnia, and osteoarthritis. Past Surgical History: Ms. Lindsays surgical/procedural history consists of cholecystectomy, colonoscopy with polypectomy, hysterectomy, laparoscopic sigmoid colectomy, metal pin in left foot 2nd toe, and repair of hiatal hernia.^, bilateral lower extremity superficial venous stripping] Medications: amLODIPine Besylate 1 Tablet (of 10 mg) Oral daily, buPROPion HCl ER (XL) 1 Tablet (of 150 mg) Tablet SR 24 HR Oral daily, Gabapentin 1 Capsule (of 300 mg) Oral t.i.d., Irbesartan-hydroCHLOROthiazide 1 Tablet (of 150-12.5 mg) Oral daily, Montelukast Sodium 1 Tablet (of 10 mg) Oral daily, Zolpidem Tartrate 1 Tablet (of 5 mg) Oral at bedtime Allergies: No Known Allergies. Social History: Ms. Javier is . Ms. Javier has never smoked. She has no history of drinking. Family History: Ms. Javier's mother at age 89: alzheimers. Ms. Javier's father at age 58: throat cancer. Ms. Javier has 1 brother who is alive: heart attack, and stroke. She has 1 sister who is alive: breast cancer, and thyroid disease. Review Of Symptoms: Constitutional - Appetite is diminished and weight is stable. No fever, chills, hot flashes, or night sweats. Energy level is good, ENMT - No sinus congestion/drainage. No mouth sores. No sore throat or difficulty swallowing, Hematologic/Lymphatic - Positive for easy bruising, Respiratory - No shortness of breath. No cough. No pleuritic pain or hemoptysis, Cardiovascular - No angina pain. No palpitations, Gastrointestinal - No nausea or vomiting. No heartburn or acid reflux. No diarrhea or constipation. No blood in the stool or black stools, Genitourinary (F) - No dysuria or hematuria. No urinary frequency. No urgency or incontinence, Musculoskeletal - No joint or bone pain, Neurologic - No headache or dizziness. No numbness/paresthesias or other focal neurologic symptoms, Psychiatric - No anxiety or depression. No insomnia. Vital Signs: Performed on March 26, 2020 12:43: 0, 26.40, 1.75 sq.m, 64 in, 98 %, 75 /min, 18 /min, 117/64 mm(hg), 98.0 F (LOW), and 153.8 lbs (HIGH). Performance Status: 0 - Fully active, able to carry on all predisease activities without restrictions. (ECOG) Physical Examination: ENMT - no mouth sores, no thrush, no jaundice, Respiratory - Lungs are clear, Cardiovascular - Regular rate and rhythm of heart, Abdomen - soft, bowel sounds present, well-healed surgical scar, Extremities - 1+ edema bilaterally. Lab/Imaging: Most recent lab results are not available for this patient. 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 Patient is an elderly female, now with newly diagnosed stage II colon cancer with no high risk features like obstruction or lymphovascular invasion. As per N CCN guidelines, there is no role of adjuvant chemotherapy rather observation alone. So at this point , we will follow her every 3 months with CBC and CMP in first year then every 4-6 months thereafter up to 5 years. Patient will be scheduled for follow-up colonoscopy within the year from surgery. Her labs done from February 19: showed mild anemia hemoglobin 10.7 hematocrit 34.2 with a normal white blood count and platelets, her anemia could be due to chronic blood loss and considering her age underlying myelodysplasia cannot be ruled out. We will check her iron studies and B12 level today if it is low, we'll consider supplement otherwise observe Patient return to clinic in 3 months with CBC CMP. Signed By: Petros Wallace M.D. <<Signature on File>>
[2020-03-26 16:16] LABS: Ferritin 202 ng/mL (15-150); Iron 68 ug/dL (37-145); Percent Saturation 22.7 % (20-50); Total Iron Binding Capacity 299 mcg/dl; Unsaturated Iron Binding 231 ug/dL (112-347)
[2020-03-26 16:32] LABS: Vitamin B12 401 pg/mL (232-1245)
[2020-03-26 16:38] LABS: Folate Level 11.4 ng/mL (4.8-37.3)
== END 2020-03-26 12:19 | disposition home or self-care (01) ==
LOC: ONCMED 12:18
PROVIDERS: Family Provider Nurse Practitioner Family; PCP Nurse Practitioner Family; Visit Provider Internal Medicine Hematology & Oncology
DX: C18.7 Malignant neoplasm of sigmoid colon (principal); D46.9 Myelodysplastic syndrome, unspecified
CPT/HCPCS: 36415; 82607; 82728; 82746; 83540; 83550; 99203

== ENCOUNTER 2020-04-07 14:22 | Outpatient (CLI) | payer MEDICARE, MEDICAID, SELFPAY ==
--- NOTE | 2020-04-07 14:41 | CT_ITS ---
WS: [id number] CT HEAD TECHNIQUE: Noncontrast CT of the head obtained from the skullbase to the vertex. CLINICAL INFORMATION: VERTIGO COMPARISON: None. DLP: 992.[address] scans at [facility] use at least one of these dose optimization techniques: automat ed exposure control; mA and/or kV adjustment per patient size (includes targeted exams where dose is matched to clinical indication); or iterative reconstruction. FINDINGS: No evidence of intracranial hemorrhage or mass effect. Ventricular system and basal cisterns are yi nt. Mild small vessel changes with mild parenchymal volume loss. Tiny chronic lacunar infarct right l ateral basal ganglia. Intracranial vascular calcification. No extra-axial fluid collections. No evide nce of mass or mass effect. Normal magdaleno-white differentiation. Paranasal sinuses and mastoid air cells are well aerated. .Normal visualized soft tissues. CT/CT head wo con* [id number] IMPRESSION: 1. No evidence of intracranial hemorrhage or mass effect. 2. Mild small vessel changes with mild parenchymal volume loss. 3. Tiny chronic lacunar infarct right lateral basal ganglia. 4. No acute intracranial findings.
== END 2020-04-07 14:23 | disposition home or self-care (01) ==
LOC: RADWPI 14:27
PROVIDERS: Family Provider Nurse Practitioner Family; PCP Nurse Practitioner Family; Visit Provider Nurse Practitioner Family
DX: R42 Dizziness and giddiness (principal); I63.81 Other cerebral infarction due to occlusion or stenosis of small artery
CPT/HCPCS: 70450

== ENCOUNTER 2020-06-14 11:19 | Outpatient (CLI) | payer MEDICARE, MEDICAID, SELFPAY ==
--- NOTE | 2020-06-14 11:24 | CT_ITS ---
WS: [id number] CT ABDOMEN PELVIS TECHNIQUE: Contrast-enhanced CT of the abdomen and pelvis with coronal and sagittal reformatted image s. CLINICAL INFORMATION: HISTORY OF COLON CANCER COMPARISON: CT February 06, 2020 DLP: 1157.[address] scans at [facility] use at least one of these dose optimization techniques: automat ed exposure control; mA and/or kV adjustment per patient size (includes targeted exams where dose is matched to clinical indication); or iterative reconstruction. FINDINGS: Mild diffuse fatty infiltration of the liver. No intrahepatic biliary ductal dilatation. Normal julien l vein and splenic vein. Pancreas is normal. Spleen is normal. Small esophageal hiatal hernia. Lung b ases are well aerated. Calcified granuloma left lower lobe. Adrenal glands are normal. Normal renal parenchymal enhancement. Mild bilateral renal cortical atroph y. Small right renal cyst. Mild intrahepatic biliary dilatation. Mild dilatation of proximal common b ile duct likely physiologic postcholecystectomy. Prior postoperative changes involving the sigmoid colon with evidence of anastomosis. No evidence of recurrent mass or lesion in this location. Low-attenuation lesion right inguinal canal likely seroma similar in appearance to previous measuring 2.2 x 1.9 x 2.9 cm. This can be followed up with ultrasound to ensure no solid components. Small andrea unt of peripheral enhancement. CT/CT abdomen pelvis w con* [id number] IMPRESSION: 1. Postoperative changes partial sigmoid resection. No evidence of recurrent m ass or lesion in this location. 2. No adenopathy in the abdomen or pelvis. 3. Low-attenuation lesion along the right inguinal canal likely represents ser layton. This is similar in appearance to previous with small amount of peripheral enhancement. This can be further evaluated with ultrasound to ensure no solid c omponents. 4. Small esophageal hiatal hernia. 5. Prior postoperative changes hysterectomy and cholecystectomy.
[2020-06-14] MEDS: iohexol 300 mg/mL 50 mL Btl PO (12:50)
[2020-06-14] MEDS: iodixanol 320 mg/mL 100mL Btl IV (13:25)
== END 2020-06-14 11:20 | disposition home or self-care (01) ==
LOC: RADWPI 11:22
PROVIDERS: Family Provider Nurse Practitioner Family; PCP Nurse Practitioner Family; Visit Provider Nurse Practitioner Family
DX: K59.00 Constipation, unspecified (principal); Z85.038 Personal history of other malignant neoplasm of large intestine; K44.9 Diaphragmatic hernia without obstruction or gangrene
CPT/HCPCS: 74177; Q9967

== ENCOUNTER 2020-06-30 11:55 | Outpatient (CLI) | payer MEDICARE, MEDICAID, SELFPAY ==
[2020-06-30 12:31] LABS: Basophils # 0.1 10^3/uL (0.0-0.1); Basophils % 0.9 %; Eosinophils # 0.1 10^3/uL (0.0-0.8); Eosinophils % 1.7 %; Hematocrit 40.1 % (37.0-47.0); Hemoglobin 12.2 g/dL (11.5-15.3); Lymphocytes # 1.8 10^3/uL (0.8-4.8); Lymphocytes % 24.1 %; Mean Corpuscular HGB Conc 30.4 g/dL (30.0-36.0); Mean Corpuscular Hemoglobin 31.4 pg (28.0-34.0); Mean Corpuscular Volume 103.4 fL (81-99); Mean Platelet Volume 9.7 fL (7.4-10.4); Monocytes # 0.6 10^3/uL (0.2-0.9); Monocytes % 8.3 %; Neutrophils # 4.84 10^3/uL (1.8-7.7); Neutrophils % 64.6 %; Nucleated Red Blood Cells % 0 %; Platelet Count 301 10^3/cmm (130-400); Red Blood Count 3.88 10^6/uL (4.1-5.3); Red Cell Distribution Width 12.2 % (12.1-15.1); White Blood Count 7.5 10^3/uL (4.0-10.0)
[2020-06-30 12:53] LABS: Alanine Aminotransferase 17 U/L (0-33); Alkaline Phosphatase 91 IU/L (35-105); Anion Gap 12.1 (5-19); Aspartate Amino Transferase 16 U/L (0-32); Blood Urea Nitrogen 19 mg/dL (8-23); Calcium 8.3 mg/dL (8.5-10.5); Carbon Dioxide 24 mmol/L (22-29); Chloride 105 mmol/L (98-107); Globulin 2.8 g/dL (1.3-4.6); Glucose 106 mg/dL (65-115); Osmolality Calculated 281 mOsm/kg (285-295); Potassium 4.1 mmol/L (3.5-5.1); Sodium 137 mmol/L (136-145); Total Bilirubin 0.5 mg/dL (0.15-1.2); Total Protein 6.8 g/dL (6.6-8.7)
--- NOTE | 2020-06-30 15:14 | ONC FU_ITS ---
Dr. Wallace follow up note Patient: Rose Javier Unit #: [id number]: 1940 Dicatated By: Petros Wallace M.D.Date of Visit:Jun 30, 2020 Onc Med Follow-up/Prog Note History of Present Illness: Mrs. Rose Javier, is a 79-year-old female, as per patient in December 2019, she noticed blood in her stool and on 02/06/2020 she underwent colonoscopy evaluation which showed at 25 cm from anal verge, there is a nonobstructing, medium-size, fungating, friable, infiltrating, malignant appearing ulcerated mass seen biopsy was taken which confirmed adenocarcinoma . CT scan of abdomen pelvis done on 02/13/2020, showed no evidence of metastatic disease in abdomen or pelvis. subsequently on 02/18/2020, she underwent laparoscopic sigmoid colon resection and final pathology report showed moderately differentiated invasive adenocarcinoma tumor site 3.1 cm, tumor invades through muscularis propria into pericolic colorectal tissue, no lymphovascular invasion seen no perineural invasion seen surgical margins clear, pT3, 0/ 11 lymph nodes examined showed metastatic disease pN0 , intact MMR/MSI , stage II Patient tolerated procedure well now healing well. Patient denies any history of jaundice, denies any history of weight loss. Denies any history of poor appetite. Denies any history of nausea vomiting diarrhea but occasional constipation.Patient denies any history of anemia or dyspnea on exertion or shortness of breath or palpitation. Came for follow-up, denies any specific complaints, no fever chills, no nausea or vomiting, no diarrhea or constipation, no melena or hematochezia, no jaundice, as per patient recently she had an episode of constipation for 4 days and her PMD prescribed her MiraLAX, with that she had a good bowel movement and felt better but there was a concern so CT scan of abdomen pelvis was ordered and was done on June 14, 2020, which showed postoperative changes partial sigmoid resection, no evidence of recurrence of disease. No lymphadenopathy. Low-attenuation lesion along the right inguinal canal likely represents seroma patient says she also had some dizziness for which she underwent CT scan of head on April 07, 2020 which was unremarkable Medications: amLODIPine Besylate 1 Tablet (of 10 mg) Oral daily, buPROPion HCl ER (XL) 1 Tablet (of 150 mg) Tablet SR 24 HR Oral daily, Gabapentin 1 Capsule (of 300 mg) Oral t.i.d., Irbesartan-hydroCHLOROthiazide 1 Tablet (of 150-12.5 mg) Oral daily, Montelukast Sodium 1 Tablet (of 10 mg) Oral daily, Zolpidem Tartrate 1 Tablet (of 5 mg) Oral at bedtime Allergies: No Known Allergies. Review of Systems: Review of Systems is not available for this patient. Vital Signs: Performed on Jun 30, 2020 14:00 Height - 64.00 in Weight - 156.4 lbs (HIGH) BSA - 1.76 sq.m BMI - 26.85 Temperature - 98.3 F (LOW) Pulse - 79 /min Respiration - 20 /min BP - 140/62 mm(hg) O2 Sat - 96 % Pain - 0 Performance Status: 0 - Fully active, able to carry on all predisease activities without restrictions. (ECOG) Physical Examination: ENMT - No mouth sores, no thrush, no jaundice, Respiratory - Lungs are clear, Cardiovascular - Regular rate and rhythm of heart, Abdomen - Soft, bowel sounds present, Extremities - No visible edema. 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 status post sigmoid colectomy done on 02/18/2020 showed 3.1 cm tumor, invades through muscularis propria into pericolonic colorectal tissue, clear surgical margins, no lymphovascular or perineural invasion seen , pT3 next 0/11 lymph nodes showed evidence of metastatic disease pN0 Intact MSI/MMR Stage II, low risk CT scan of abdomen done on 02/13/2020 showed no evidence of metastatic disease in the abdomen or pelvis Plan: Discussed with patient regarding her labs white blood count 7.5 hemoglobin 12.2 hematocrit 40.1, platelets 301,000 CMP within normal limits and her iron studies done on March 26, 2020 were within normal range Clinically, patient doing well with no signs symptom suggestive of recurrence of disease, recently underwent CT scan of abdomen pelvis on June 14, 2020 because of constipation, it showed no evidence of recurrence of disease but low-attenuation lesion along the right inguinal canal likely represents seroma, so ultrasound was recommended as per patient she is scheduled for ultrasound on July 08, 2020 and patient has follow-up with Dr. Stewart, surgery on July 19, 2020. We will continue to monitor and she will return to clinic in 6 months with CBC CMP Signed By: Petros Wallace M.D. <<Signature on File>>
== END 2020-06-30 11:56 | disposition home or self-care (01) ==
LOC: ONCMED 12:00
PROVIDERS: PCP Nurse Practitioner Family; Visit Provider Internal Medicine Hematology & Oncology
DX: Z08 Encounter for follow-up examination after completed treatment for malignant neoplasm (principal); Z85.038 Personal history of other malignant neoplasm of large intestine; R93.5 Abnormal findings on diagnostic imaging of other abdominal regions, including retroperitoneum; Z90.49 Acquired absence of other specified parts of digestive tract
CPT/HCPCS: 80053; 85025; G0463

== ENCOUNTER 2020-07-08 08:49 | Outpatient (CLI) | payer MEDICARE, MEDICAID, SELFPAY ==
--- NOTE | 2020-07-08 09:06 | US_ITS ---
WS: [id number] ULTRASOUND PELVIS TECHNIQUE: Transabdominal. CLINICAL INFORMATION: COLON CANCER LMP: : No. COMPARISON: CT June 14, 2020 FINDINGS: Prior hysterectomy with one ovary removed. Previously described fluid collection in the right groin s een on the CT is identified today. This is fluid containing with internal debris most consistent with benign seroma. Seroma measures approximately 1.7 x 2.5 x 1.0 CM. Incidental normal-appearing lymph n odes in the right groin. Adnexa: History of removal of one ovary. Neither ovary is visualized today. Other findings: No other abnormalities. US/US pelvic complete* [id number] IMPRESSION: 1. Prior hysterectomy. Neither ovary is visualized today. 2. Previously described suspected seroma seen on prior CT is confirmed as a fl uid collection today with some internal debris likely proteinaceous. Findings c onsistent with benign seroma. 3. No other significant findings.
--- NOTE | 2020-07-08 09:06 | US_ITS ---
WS: [id number] ULTRASOUND ABDOMEN CLINICAL INFORMATION: COLON CANCER COMPARISON: None. FINDINGS: Esophageal hiatal hernia. Liver Size: Mild hepatomegaly Craniocaudal length: 16.7 cm. Echogenicity: Fatty infiltration Surface nodularity: None. Mass (size and location): None. Bile ducts Intrahepatic ducts: Normal. Common bile duct diameter: 0.6 cm. Gallbladder Removed Pancreas Normal as visualized. Right kidney: Normal. Hydronephrosis: None. Size: 9.3 cm x 5.5 cm x 3.9 cm Left kidney: Normal. Hydronephrosis: None. Size: 9.6 cm x 4.3 cm x 5.1 cm. Abdominal aorta and IVC Visualized portions are normal. Ascites: None. US/US abdomen complete* [id number] IMPRESSION: 1. Diffuse fatty infiltration of the liver with mild hepatomegaly. 2. Gallbladder has been removed. 3. No hydronephrosis in either kidney.
== END 2020-07-08 08:50 | disposition home or self-care (01) ==
LOC: US 08:50
PROVIDERS: PCP Nurse Practitioner Family; Visit Provider Nurse Practitioner Family
DX: R19.7 Diarrhea, unspecified (principal); C18.9 Malignant neoplasm of colon, unspecified; K46.9 Unspecified abdominal hernia without obstruction or gangrene; K76.0 Fatty (change of) liver, not elsewhere classified; R16.0 Hepatomegaly, not elsewhere classified
CPT/HCPCS: 76700; 76856

== ENCOUNTER 2020-12-31 08:51 | Outpatient (CLI) | payer MEDICARE, MEDICAID, SELFPAY ==
[2020-12-31 09:30] LABS: Basophils # 0.1 10^3/uL (0.0-0.1); Basophils % 0.8 %; Eosinophils # 0.1 10^3/uL (0.0-0.8); Eosinophils % 1.1 %; Hematocrit 39.8 % (37.0-47.0); Hemoglobin 12.6 g/dL (11.5-15.3); Lymphocytes # 1.6 10^3/uL (0.8-4.8); Lymphocytes % 21.5 %; Mean Corpuscular HGB Conc 31.7 g/dL (30.0-36.0); Mean Platelet Volume 9.7 fL (7.4-10.4); Monocytes # 0.6 10^3/uL (0.2-0.9); Monocytes % 8.5 %; Neutrophils # 5.09 10^3/uL (1.8-7.7); Neutrophils % 67.7 %; Nucleated Red Blood Cells % 0 %; Platelet Count 296 10^3/cmm (130-400); Red Blood Count 4.06 10^6/uL (4.1-5.3); Red Cell Distribution Width 12.6 % (12.1-15.1); White Blood Count 7.5 10^3/uL (4.0-10.0)
[2020-12-31 09:52] LABS: Alanine Aminotransferase 14 U/L (0-33); Albumin Level 4.1 g/dL (3.5-5.2); Alkaline Phosphatase 94 IU/L (35-105); Anion Gap 13.8 (5-19); Aspartate Amino Transferase 15 U/L (0-32); Blood Urea Nitrogen 30 mg/dL (8-23); Calcium 9.2 mg/dL (8.5-10.5); Carbon Dioxide 25 mmol/L (22-29); Chloride 103 mmol/L (98-107); Globulin 2.7 g/dL (1.3-4.6); Glucose 86 mg/dL (65-115); Osmolality Calculated 291 mOsm/kg (285-295); Potassium 3.8 mmol/L (3.5-5.1); Sodium 138 mmol/L (136-145); Total Bilirubin 0.9 mg/dL (0.15-1.2); Total Protein 6.8 g/dL (6.6-8.7)
--- NOTE | 2020-12-31 11:37 | ONC FU_ITS ---
Dr. Wallace follow up note Patient: Rose Javier Unit #: [id number]: 1940 Dicatated By: Petros Wallace M.D.Date of Visit:Dec 31, 2020 Onc Med Follow-up/Prog Note History of Present Illness: Mrs. Rose Javier, is a 80-year-old female, as per patient in December 2019, she noticed blood in her stool and on 02/06/2020 she underwent colonoscopy evaluation which showed at 25 cm from anal verge, there is a nonobstructing, medium-size, fungating, friable, infiltrating, malignant appearing ulcerated mass seen biopsy was taken which confirmed adenocarcinoma . CT scan of abdomen pelvis done on 02/13/2020, showed no evidence of metastatic disease in abdomen or pelvis. subsequently on 02/18/2020, she underwent laparoscopic sigmoid colon resection and final pathology report showed moderately differentiated invasive adenocarcinoma tumor site 3.1 cm, tumor invades through muscularis propria into pericolic colorectal tissue, no lymphovascular invasion seen no perineural invasion seen surgical margins clear, pT3, 0/ 11 lymph nodes examined showed metastatic disease pN0 , intact MMR/MSI , stage II Patient tolerated procedure well now healing well. Patient denies any history of jaundice, denies any history of weight loss. Denies any history of poor appetite. Denies any history of nausea vomiting diarrhea but occasional constipation.Patient denies any history of anemia or dyspnea on exertion or shortness of breath or palpitation. Came for follow-up, denies any specific complaints, no fever chills, no nausea or vomiting, no diarrhea or constipation, no abdominal pain, no jaundice, appetite is good Medications: amLODIPine Besylate 1 Tablet (of 10 mg) Oral daily, Irbesartan-hydroCHLOROthiazide 1 Tablet (of 150-12.5 mg) Oral daily, Zolpidem Tartrate 1 Tablet (of 5 mg) Oral at bedtime Allergies: No Known Allergies. Review of Systems: Review of Systems is not available for this patient. Vital Signs: Performed on Dec 31, 2020 10:26 Height - 64.00 in Weight - 154.6 lbs (LOW) BSA - 1.75 sq.m BMI - 26.54 Temperature - 97.6 F (LOW) Pulse - 72 /min Respiration - 16 /min BP - 154/61 mm(hg) (HIGH) O2 Sat - 97 % Pain - 0 Performance Status: 0 - Fully active, able to carry on all predisease activities without restrictions. (ECOG) Physical Examination: ENMT - No mouth sores, no thrush, no jaundice, Respiratory - Lungs are clear to auscultation, Cardiovascular - Regular rate and rhythm of heart, Abdomen - Soft, bowel sounds present, Extremities - No visible edema. Lab/Imaging: Most recent lab results are not available for this patient. 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 status post sigmoid colectomy done on 02/18/2020 showed 3.1 cm tumor, invades through muscularis propria into pericolonic colorectal tissue, clear surgical margins, no lymphovascular or perineural invasion seen , pT3 next 0/11 lymph nodes showed evidence of metastatic disease pN0 Intact MSI/MMR Stage II, low risk CT scan of abdomen done on 02/13/2020 showed no evidence of metastatic disease in the abdomen or pelvis Plan: Discussed with patient regarding her labs white blood count 7.5 hemoglobin 12.6 hematocrit 39.8 platelets 296,000 CMP within normal limits Clinically, patient is doing well with no new signs symptoms suggestive of recurrence of disease her lab work-up is within normal range. We will continue to monitor and also refer her to Dr. Stewart regarding yearly colonoscopy Patient return to clinic in 6 months with CBC CMP Signed By: Petros Wallace M.D. <<Signature on File>>
== END 2020-12-31 08:52 | disposition home or self-care (01) ==
LOC: ONCMED 08:54
PROVIDERS: PCP Nurse Practitioner Family; Visit Provider Internal Medicine Hematology & Oncology
DX: Z08 Encounter for follow-up examination after completed treatment for malignant neoplasm (principal); Z85.038 Personal history of other malignant neoplasm of large intestine; Z90.49 Acquired absence of other specified parts of digestive tract
CPT/HCPCS: 36415; 80053; 85025; G0463

== ENCOUNTER 2021-01-20 08:26 | Day surgery (SDC) | payer MEDICARE, MEDICAID, SELFPAY ==
[2021-01-18 14:03] VITALS: BMI 27.3
--- NOTE | 2021-01-20 08:37 | W.PM.OPSUD ---
Surgery/Procedure H&P Update DATE OF PROCEDURE: January 20, 2021 DATE H&P PERFORMED: 01/14/21 H&P UPDATE INFORMATION: I have reviewed H&P completed within last 30 days, I have examined patient prior to procedure and No changes to prior documentation PREOP DIAGNOSIS: Sigmoid colon cancer PLANNED PROCEDURE: Operation Date: 01/20/21 09:15 Proposed Procedures p Colonoscopy 93566 C18.7(Not Applicable) - Goyo Stewart MD
[2021-01-20 08:42] VITALS: BP 132/77; PULSE 81; RESP 18; TEMP 36.3; O2SAT 96
[2021-01-20] MEDS: sodium chloride 0.9% 1,000 ML 30 ML IV (08:57)
--- NOTE | 2021-01-20 09:11 | ANES.PREANE2 ---
Pre-Anesthetic Assessment Pre-Anesthetic Assessment: Height/Weight: Height 1.6 m Weight 69.853 kg Temp Pulse Resp BP Pulse Ox 97.4 F L 81 18 132/77 96 01/20/21 08:42 01/20/21 08:42 01/20/21 08:42 01/20/21 08:42 01/20/21 08:42 Preop Diagnosis: Sigmoid colon cancer Proposed Procedure: Operation Date: 01/20/21 09:15 Proposed Procedures p Colonoscopy 97935 C18.7(Not Applicable) - Goyo Stewart MD Was Beta Mary taken within 24 hours: N/A Last intake: Intake Last Liquid Date 01/19/21 Last Liquid Time 21:00 Last Solid Date 01/18/21 Last Solid Time 18:00 Social: Social History: No alcohol and No tobacco Exam: Pre-Anes Outpt Exam: alert, oriented x 3, clear to auscultation bilaterally and regular rate & rhythm Airway: Submandibular: WNL Cervical ROM: WNL MP: 2 Dentition: False CV/HEM: CV/HEM: HTN GI: GI: GERD Neuropsych: Neuropsych: Anxiety Anesthetic Plan: ASA status: 3 Anesthesia: MAC Risk of > 500 ml blood loss (7ml/kg in children): No Meds/Allergies Current Medications: Current Medications Generic Name Dose Route Start Last Admin Trade Name Freq PRN Reason Stop Dose Admin Sodium Chloride 1,000 mls @ 30 ml s/hr 01/20/21 08:45 01/20/21 08:57 Sodium Chloride 0.9% IV 01/21/21 08:44 30 mls/hr .Q24H JEMMA Administration PFSH Anesthesia PFSH: Medical History (Updated 01/17/21 @ 08:55 by Goyo Stewart MD) Adenocarcinoma of sigmoid colon [id number] Essential (primary) hypertension Osteoarthritis (~01/2020) Primary insomnia Surgical History History of cholecystectomy History of colonoscopy with polypectomy History of hysterectomy History of repair of hiatal hernia S/P partial colectomy (~02/18/20) Laparoscopic sigmoid colectomy Family History Other Cancer Hypertension Social History Smoking and tobacco status: never smoked Alcohol intake: never Lives independently: Yes Marital status: Single Current occupational status: retired History of recent travel: No Current gender identity: Female Female Reproductive History: Date of last menstrual period: 02/12/01 Data Anesthesia Cardiac Studies: No Data to Display
[2021-01-20 09:58] VITALS: BP 109/58; PULSE 74; RESP 18; TEMP 36.3; O2SAT 94
--- NOTE | 2021-01-20 10:01 | ANE.PACU2 ---
Inpatient post-anesthesia follow up: Airway intact: Yes Vital signs: Temperature 97.4 F Pulse Rate 81 Respiratory Rate 18 Blood Pressure 132/77 Pulse Oximetry 96 Oxygen Delivery Me thod Room Air Oxygen Flow Rate Fraction of Inspir ed Oxygen Hydration adequate: Yes Nausea and vomiting: No Pain level: 1 Mental status: Baseline
[2021-01-20 10:25] VITALS: BP 141/72; PULSE 76; RESP 18; TEMP 36.3; O2SAT 97
--- NOTE | 2021-01-20 11:43 | ANE.PACU2 ---
Inpatient post-anesthesia follow up: Airway intact: Yes Vital signs: Temperature 97.4 F Pulse Rate 76 Respiratory Rate 18 Blood Pressure 141/72 Pulse Oximetry 97 Oxygen Delivery Me thod Room Air Oxygen Flow Rate Fraction of Inspir ed Oxygen Hydration adequate: Yes Nausea and vomiting: No Pain level: 1 Mental status: Baseline
== END 2021-01-20 10:34 | disposition home or self-care (01) ==
PROVIDERS: PCP Nurse Practitioner Family; Visit Provider Surgery
PROC: 0DJD8ZZ Inspection of Lower Intestinal Tract, Via Natural or Artificial Opening Endoscopic (ICD-10-PCS; CPT 45378; principal; 2021-01-20 09:15)
DX: C18.7 Malignant neoplasm of sigmoid colon (principal); D12.2 Benign neoplasm of ascending colon; D12.4 Benign neoplasm of descending colon; K57.30 Diverticulosis of large intestine without perforation or abscess without bleeding; I10 Essential (primary) hypertension; M19.90 Unspecified osteoarthritis, unspecified site; K21.9 Gastro-esophageal reflux disease without esophagitis; F41.9 Anxiety disorder, unspecified
CPT/HCPCS: 45380; 88305; J2704; J7030

== ENCOUNTER 2021-07-12 13:57 | Outpatient (CLI) | payer MEDICARE, MEDICAID, SELFPAY ==
[2021-07-12 15:05] LABS: Alanine Aminotransferase 15 U/L (0-33); Albumin Level 4.1 g/dL (3.5-5.2); Alkaline Phosphatase 87 IU/L (35-105); Anion Gap 14.2 (5-19); Aspartate Amino Transferase 14 U/L (0-32); Blood Urea Nitrogen 29 mg/dL (8-23); Calcium 8.9 mg/dL (8.5-10.5); Carbon Dioxide 24 mmol/L (22-29); Chloride 106 mmol/L (98-107); Globulin 2.8 g/dL (1.3-4.6); Glucose 87 mg/dL (65-115); Osmolality Calculated 295 mOsm/kg (285-295); Potassium 4.2 mmol/L (3.5-5.1); Sodium 140 mmol/L (136-145); Total Bilirubin 0.9 mg/dL (0.15-1.2); Total Protein 6.9 g/dL (6.6-8.7)
[2021-07-12 15:07] LABS: Basophils # 0.1 10^3/uL (0.0-0.1); Basophils % 0.7 %; Eosinophils # 0.1 10^3/uL (0.0-0.8); Eosinophils % 1.3 %; Hemoglobin 12.5 g/dL (11.5-15.3); Lymphocytes # 1.9 10^3/uL (0.8-4.8); Lymphocytes % 28.6 %; Mean Corpuscular HGB Conc 31.3 g/dL (30.0-36.0); Mean Corpuscular Hemoglobin 30.9 pg (28.0-34.0); Mean Corpuscular Volume 98.8 fl (81-99); Mean Platelet Volume 10.4 fL (7.4-10.4); Monocytes # 0.7 10^3/uL (0.2-0.9); Monocytes % 9.9 %; Neutrophils % 59.2 %; Nucleated Red Blood Cells % 0 %; Platelet Count 268 10^3/cmm (130-400); Red Blood Count 4.05 10^6/uL (4.1-5.3); Red Cell Distribution Width 12.2 % (12.1-15.1); White Blood Count 6.8 10^3/uL (4.0-10.0)
--- NOTE | 2021-07-12 16:48 | ONC FU_ITS ---
Dr. Wallace follow up note Patient: Rose Javier Unit #: [id number]: 1940 Dicatated By: Petros Wallace M.D.Date of Visit:Jul 12, 2021 Onc Med Follow-up/Prog Note History of Present Illness: Mrs. Rose Javier, is a 80-year-old female, as per patient in December 2019, she noticed blood in her stool and on 02/06/2020 she underwent colonoscopy evaluation which showed at 25 cm from anal verge, there is a nonobstructing, medium-size, fungating, friable, infiltrating, malignant appearing ulcerated mass seen biopsy was taken which confirmed adenocarcinoma . CT scan of abdomen pelvis done on 02/13/2020, showed no evidence of metastatic disease in abdomen or pelvis. subsequently on 02/18/2020, she underwent laparoscopic sigmoid colon resection and final pathology report showed moderately differentiated invasive adenocarcinoma tumor site 3.1 cm, tumor invades through muscularis propria into pericolic colorectal tissue, no lymphovascular invasion seen no perineural invasion seen surgical margins clear, pT3, 0/ 11 lymph nodes examined showed metastatic disease pN0 , intact MMR/MSI , stage II Patient tolerated procedure well now healing well. Patient denies any history of jaundice, denies any history of weight loss. Denies any history of poor appetite. Denies any history of nausea vomiting diarrhea but occasional constipation.Patient denies any history of anemia or dyspnea on exertion or shortness of breath or palpitation .Came for follow-up, denies any specific complaints, no fever chills, no nausea or vomiting, no diarrhea or constipation, no jaundice, no abdominal pain, as per patient she underwent follow-up colonoscopy in December or January [address] Stewart informed her that no abnormality seen. Medications: amLODIPine Besylate 1 Tablet (of 10 mg) Oral daily, Irbesartan-hydroCHLOROthiazide 1 Tablet (of 150-12.5 mg) Oral daily, Zolpidem Tartrate 1 Tablet (of 5 mg) Oral at bedtime Allergies: No Known Allergies. Review of Systems: Review of Systems is not available for this patient. Vital Signs: Performed on Jul 12, 2021 15:50 Height - 64.00 in Weight - 150.4 lbs (LOW) BSA - 1.73 sq.m BMI - 25.82 Temperature - 98.1 F (LOW) Pulse - 69 /min Respiration - 18 /min BP - 146/71 mm(hg) (HIGH) O2 Sat - 97 % Pain - 0 Fatigue - 0 Performance Status: 0 - Fully active, able to carry on all predisease activities without restrictions. (ECOG) Physical Examination: ENMT - No mouth sores, no thrush, no jaundice, Respiratory - Lungs are clear to auscultation, Cardiovascular - Regular rate and rhythm of heart, Abdomen - Soft, bowel sounds present, Extremities - No visible edema. Lab/Imaging: Most recent lab results are not available for this patient. 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 status post sigmoid colectomy done on 02/18/2020 showed 3.1 cm tumor, invades through muscularis propria into pericolonic colorectal tissue, clear surgical margins, no lymphovascular or perineural invasion seen , pT3 next 0/11 lymph nodes showed evidence of metastatic disease pN0 Intact MSI/MMR Stage II, low risk CT scan of abdomen done on 02/13/2020 showed no evidence of metastatic disease in the abdomen or pelvis Plan: Discussed with patient regarding her labs white blood count 6.8 hemoglobin 12.5 g hematocrit 40 platelets 268,000 CMP within normal limits Clinically, patient doing well with no new signs symptoms history of recurrence of disease her lab work-up is within normal range, patient had a follow-up colonoscopy done in December or January 2021 as per patient, no abnormality seen. We will obtain records from Dr. Stewart's office. Patient return to clinic in 6 months with CBC CMP Signed By: Petros Wallace M.D. <<Signature on File>>
== END 2021-07-12 13:58 | disposition home or self-care (01) ==
PROVIDERS: PCP Nurse Practitioner Family; Visit Provider Internal Medicine Hematology & Oncology
DX: Z08 Encounter for follow-up examination after completed treatment for malignant neoplasm (principal); Z85.038 Personal history of other malignant neoplasm of large intestine; Z79.899 Other long term (current) drug therapy
CPT/HCPCS: 36415; 80053; 85025; 99214

== ENCOUNTER 2022-02-24 08:43 | Outpatient (CLI) | payer MEDICARE, SELFPAY ==
[2022-02-24 09:25] LABS: Basophils # 0.1 10^3/uL (0.0-0.1); Basophils % 0.7 %; Eosinophils # 0.1 10^3/uL (0.0-0.8); Eosinophils % 1.6 %; Hematocrit 38.8 % (37.0-47.0); Hemoglobin 12.3 g/dL (11.5-15.3); Lymphocytes # 1.7 10^3/uL (0.8-4.8); Lymphocytes % 24.8 %; Mean Corpuscular HGB Conc 31.7 g/dL (30.0-36.0); Mean Corpuscular Hemoglobin 30.8 pg (28.0-34.0); Mean Corpuscular Volume 97.2 fl (81-99); Mean Platelet Volume 10.3 fL (7.4-10.4); Monocytes # 0.6 10^3/uL (0.2-0.9); Monocytes % 8.2 %; Neutrophils # 4.41 10^3/uL (1.8-7.7); Neutrophils % 64.4 %; Nucleated Red Blood Cells % 0 %; Platelet Count 247 10^3/cmm (130-400); Red Blood Count 3.99 10^6/uL (4.1-5.3); Red Cell Distribution Width 12.5 % (12.1-15.1); White Blood Count 6.9 10^3/uL (4.0-10.0)
[2022-02-24 09:40] LABS: Alanine Aminotransferase 22 U/L (0-33); Albumin Level 4.4 g/dL (3.5-5.2); Alkaline Phosphatase 85 IU/L (35-105); Anion Gap 14.2 (5-19); Aspartate Amino Transferase 20 U/L (0-32); Blood Urea Nitrogen 20 mg/dL (8-23); Calcium 9.8 mg/dL (8.5-10.5); Carbon Dioxide 26 mmol/L (22-29); Chloride 104 mmol/L (98-107); Globulin 2.1 g/dL (1.3-4.6); Glucose 106 mg/dL (65-115); Osmolality Calculated 293 mOsm/kg (285-295); Potassium 4.2 mmol/L (3.5-5.1); Sodium 140 mmol/L (136-145); Total Bilirubin 0.7 mg/dL (0.15-1.2); Total Protein 6.5 g/dL (6.6-8.7)
--- NOTE | 2022-02-24 11:53 | ONC FU_ITS ---
Dr. Wallace follow up note Patient: Rose Javier Unit #: [id number]: 1940 Dicatated By: Petros Wallace M.D.Date of Visit:Feb 24, 2022 Onc Med Follow-up/Prog Note History of Present Illness: Mrs. Rose Javier, is a 81-year-old female, as per patient in December 2019, she noticed blood in her stool and on 02/06/2020 she underwent colonoscopy evaluation which showed at 25 cm from anal verge, there is a nonobstructing, medium-size, fungating, friable, infiltrating, malignant appearing ulcerated mass seen biopsy was taken which confirmed adenocarcinoma . CT scan of abdomen pelvis done on 02/13/2020, showed no evidence of metastatic disease in abdomen or pelvis. subsequently on 02/18/2020, she underwent laparoscopic sigmoid colon resection and final pathology report showed moderately differentiated invasive adenocarcinoma tumor site 3.1 cm, tumor invades through muscularis propria into pericolic colorectal tissue, no lymphovascular invasion seen no perineural invasion seen surgical margins clear, pT3, 0/ 11 lymph nodes examined showed metastatic disease pN0 , intact MMR/MSI , stage II Patient denies any history of jaundice, denies any history of weight loss. Denies any history of poor appetite. Denies any history of nausea vomiting diarrhea but occasional constipation.Patient denies any history of anemia or dyspnea on exertion or shortness of breath or palpitation Follow-up yearly colonoscopy done on 04/19/2021 showed colorectal anastomosis no evidence of recurrence. Subcentimeter polyps were removed from ascending colon and descending colon per colonoscopy report. Came for follow-up, denies any specific complaints, no fever chills, no nausea or vomiting, no diarrhea or constipation, no melena or hematochezia, no hemoptysis or hematemesis, no jaundice, appetite is good Medications: amLODIPine Besylate 1 Tablet (of 10 mg) Oral daily, Irbesartan-hydroCHLOROthiazide 1 Tablet (of 150-12.5 mg) Oral daily, Prevagen Capsule Oral daily, Zolpidem Tartrate 1 Tablet (of 5 mg) Oral at bedtime Allergies: No Known Allergies. Review of Systems: Review of Systems is not available for this patient. Vital Signs: Performed on Feb 24, 2022 11:05 Height - 64.00 in BP - 171/67 mm(hg) (HIGH) Performed on Feb 24, 2022 11:05 Height - 64.00 in Weight - 153.8 lbs (HIGH) BSA - 1.75 sq.m BMI - 26.40 Temperature - 98.0 F (LOW) Pulse - 73 /min Respiration - 16 /min BP - 168/65 mm(hg) (HIGH) O2 Sat - 97 % Pain - 0 Fatigue - 0 Performance Status: 0 - Fully active, able to carry on all predisease activities without restrictions. (ECOG) Physical Examination: ENMT - No mouth sores, no thrush, no jaundice, Respiratory - Lungs are clear to auscultation, Cardiovascular - Regular rate and rhythm of heart, Abdomen - Soft, bowel sounds present, Extremities - No visible edema. Lab/Imaging: Most recent lab results are not available for this patient. 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 status post sigmoid colectomy done on 02/18/2020 showed 3.1 cm tumor, invades through muscularis propria into pericolonic colorectal tissue, clear surgical margins, no lymphovascular or perineural invasion seen , pT3 next 0/11 lymph nodes showed evidence of metastatic disease pN0 Intact MSI/MMR Stage II, low risk CT scan of abdomen done on 02/13/2020 showed no evidence of metastatic disease in the abdomen or pelvis Plan: Discussed with patient regarding her labs white blood count 6.9 hemoglobin 12.3 hematocrit 38.8 platelets 247,000 CMP within normal limits Clinically, patient doing well with no new signs symptoms just of recurrence of disease her lab work-up is within normal range. Patient had follow-up colonoscopy last year, as per patient couple of polyps were removed they were benign. Return to clinic in 6 months with CBC CMP and CEA Signed By: Petros Wallace M.D. <<Signature on File>>
== END 2022-02-24 08:44 | disposition home or self-care (01) ==
PROVIDERS: Internal Medicine Hematology & Oncology; PCP Nurse Practitioner Family; Visit Provider Nurse Practitioner Family
DX: Z85.038 Personal history of other malignant neoplasm of large intestine (principal); Z79.899 Other long term (current) drug therapy
CPT/HCPCS: 36415; 80053; 85025; 99214

== ENCOUNTER 2023-02-16 07:54 | Oncology outpatient (recurring) (ONCR) | payer MEDICARE, SELFPAY ==
[2023-02-16 08:16] LABS: Basophils # 0.1 10^3/uL (0.0-0.1); Eosinophils # 0.1 10^3/uL (0.0-0.8); Eosinophils % 1.3 %; Hematocrit 39.4 % (37.0-47.0); Hemoglobin 12.8 g/dL (11.5-15.3); Lymphocytes # 1.8 10^3/uL (0.8-4.8); Lymphocytes % 22.5 %; Mean Corpuscular HGB Conc 32.5 g/dL (30.0-36.0); Mean Corpuscular Hemoglobin 31.4 pg (28.0-34.0); Mean Corpuscular Volume 96.8 fl (81-99); Monocytes # 0.8 10^3/uL (0.2-0.9); Monocytes % 10.6 %; Neutrophils # 5.11 10^3/uL (1.8-7.7); Neutrophils % 64.2 %; Nucleated Red Blood Cells % 0 %; Platelet Count 287 10^3/cmm (130-400); Red Blood Count 4.07 10^6/uL (4.1-5.3); Red Cell Distribution Width 11.9 % (12.1-15.1)
[2023-02-16 08:42] LABS: Carcinoembryonic Antigen 4.6 ng/mL (0.0-4.7)
[2023-02-16 08:53] LABS: Alanine Aminotransferase 17 U/L (0-33); Albumin Level 4.2 g/dL (3.5-5.2); Alkaline Phosphatase 91 U/L (35-105); Anion Gap 14.7 (5-19); Aspartate Amino Transferase 19 U/L (0-32); Blood Urea Nitrogen 18 mg/dL (8-23); Calcium 9.6 mg/dL (8.5-10.5); Carbon Dioxide 25 mmol/L (22-29); Chloride 106 mmol/L (98-107); Globulin 2.9 g/dL (1.3-4.6); Glucose 110 mg/dL (65-115); Osmolality Calculated 295 mOsm/kg (285-295); Potassium 4.7 mmol/L (3.5-5.1); Sodium 141 mmol/L (136-145); Total Bilirubin 1.4 mg/dL (0.15-1.2); Total Protein 7.1 g/dL (6.6-8.7)
== END 2023-02-23 23:59 | disposition home or self-care (01) ==
PROVIDERS: PCP Nurse Practitioner Family; Visit Provider Nurse Practitioner Family
DX: C18.7 Malignant neoplasm of sigmoid colon (principal); Z90.49 Acquired absence of other specified parts of digestive tract; E80.7 Disorder of bilirubin metabolism, unspecified; R74.01 Elevation of levels of liver transaminase levels
CPT/HCPCS: 36415; 80053; 82378; 85025; 99213; 99214

== ENCOUNTER 2023-03-19 14:14 | Oncology outpatient (recurring) (ONCR) | payer MEDICARE, SELFPAY | END 2023-03-25 23:59 | disposition home or self-care (01) | LOC: ONCMED 14:15 | PROVIDERS: PCP Family Medicine; Visit Provider Nurse Practitioner Family | DX: C18.7 Malignant neoplasm of sigmoid colon (principal); Z90.49 Acquired absence of other specified parts of digestive tract; E80.7 Disorder of bilirubin metabolism, unspecified; R74.01 Elevation of levels of liver transaminase levels | CPT/HCPCS: 99213 ==

== ENCOUNTER 2023-05-08 08:48 | Outpatient (CLI) | payer MEDICARE, SELFPAY ==
--- NOTE | 2023-05-08 10:00 | CT_ITS ---
WS: [id number] CT CHEST, ABDOMEN AND PELVIS WITH CONTRAST HISTORY: Restaging colon cancer. TECHNIQUE: Contiguous 5 mm axial imaging performed through the chest, abdomen and pelvis with IV cont rast, oral contrast has been provided. Coronal and sagittal reformats chest. Coronal and sagittal ref ormats through the abdomen and pelvis. All CT scans at [facility] use at least one of these d ose optimization techniques: automated exposure control; mA and/or kV adjustment per patient size (in cludes targeted exams where dose is matched to clinical indication); or iterative reconstruction. CONTRAST: Omnipaque 350; 100 mL IV. DLP: 627.84 mGy.cm COMPARISON: 06/14/[address]: No pulmonary mass or nodule. No axillary, supraclavicular, mediastinal or hilar adenopathy. Normal size heart. No pericardial or pleural effusions. No osteoblastic or osteolytic bone disease i n the chest. Abdomen CT: Small hiatal hernia. Normal size liver. There is some very mild central and common bile d uct dilatation. Similar to the prior study from 2019. Common bile duct measures 9.4 mm. No solid mass . Prior cholecystectomy. Normal spleen. Normal adrenal glands. Normal enhancement of each kidney. No obstruction. Mild atherosclerosis aorta. No GI tract obstruction. Mild scattered diverticular disease in the distal colon. No mesenteric or retroperitoneal adenopathy. No ascites. Pelvic CT: Prior hysterectomy. No free fluid in the pelvis. Surgical anastomotic sutures near the rec tosigmoid junction. No adjacent soft tissue mass or obstruction. No adenopathy. Well-circumscribed fl uid collection in the RIGHT inguinal region measures 2.2 cm. This has been previously described and t hought to be a postoperative seroma. Benign in appearance. No osteoblastic or osteolytic bone disease. CT/CT chest abdpel w/*[id number] IMPRESSION: 1. No metastatic disease within the chest, abdomen or pelvis. 2. Rectosigmoid anastomotic sutures are stable. No recurrent mass. 3. Prior cholecystectomy. Mild common bile duct and central bile duct dilatati on. Stable. 4. No adenopathy in the chest, abdomen or pelvis.
[2023-05-08] MEDS: iohexol 350 mg/mL 500 mL Btl (per mL) PO (10:09)
[2023-05-08] MEDS: iohexol 350 mg/mL 500 mL Btl (per mL) IV (10:11)
== END 2023-05-08 08:49 | disposition home or self-care (01) ==
PROVIDERS: PCP Nurse Practitioner; Visit Provider Nurse Practitioner Family
DX: C18.7 Malignant neoplasm of sigmoid colon (principal); Z90.49 Acquired absence of other specified parts of digestive tract
CPT/HCPCS: 71260; 74177; Q9967